=== PATIENT | female | born 1980 | race Two or more races ===

== ENCOUNTER 2023-09-16 21:53 | Emergency (ER) | payer OTHER ==
[~2023-09-16] VITALS: Ht 152.4 cm; Wt 59.0 kg
[2023-09-16] MEDS ORDERED: CARTIA XT120 MG (22:42)
[2023-09-17 01:08] LABS: HEMATOCRIT 38.5 % (36.0-45.00); HEMOGLOBIN 13.3 g/dL (12.0-15.00); MEAN CELL VOLUME 99.1 fL (80.00-100.00); MEAN CORPUSCULAR HEMOGLOBIN 34.2 pg (27.00-32.0); MEAN CORPUSCULAR HGB CONC 34.5 g/dl (32.0-36.0); PLATELET COUNT 257 K/uL (150-450); RED BLOOD COUNT 3.88 M/uL (4.00-6.00); RED CELL DISTRIBUTION WIDTH 12.6 % (11.5-14.5)
[2023-09-17 02:18] LABS: CALCIUM 9.3 mg/dL (8.5-10.1); CREATININE SERUM 0.8 mg/dL (0.55-1.02); GFR 79.44; POTASSIUM 4.09 mEq/L (3.5-5.1); TSH 2.79 uIU/mL (0.358-3.74)
[2023-09-17] MEDS ORDERED: ACETAMINOPHEN650 M2 PO (04:17)
[2023-09-17] MEDS ORDERED: MEDROLPACK PO (04:17)
[2023-09-17] MEDS ORDERED: NORFLEX100MG PO (04:17)
== END 2023-09-17 04:19 | disposition home or self-care (01) ==
LOC: EDBD 21:54 → ER 21:54
PROVIDERS: General Practice
DX: R07.89 Other chest pain (principal); Z88.8 Allergy status to other drugs, medicaments and biological substances